=== PATIENT | female | born 1945 | race Caucasian/White ===

== ENCOUNTER 2020-02-21 18:58 | Emergency (ER) | payer OTHER, SELFPAY ==
[2020-02-21 19:17] VITALS: BP 150/109; PULSE 92; RESP 16; TEMP 37.1; O2SAT 95
--- NOTE | 2020-02-21 19:37 | ED.GENADULT ---
HPI - General Adult General Chief complaint: Fall Stated complaint: knee/ribs/foot injury Time Seen by Provider: 02/21/20 19:19 Source: patient and RN notes reviewed Mode of arrival: ambulatory Limitations: no limitations History of Present Illness HPI narrative: Patient presents today complaining of pain to her right knee and left ribs after she fell 10 days ago at [facility]. States she tripped on a barrier in line. She did strike her face on the ground and has some healing bruising to the left cheek. She is primarily complaining of some pain to the right lateral knee. She reports the bruising is improving. States that she had some severe left rib pain initially, but this has been improving as well. A few days after the fall, she noticed some bruising to the bottom of her foot and toes as well as some increased edema to her foot and ankle. Denies pain to the lower leg. Denies pain to the ankle or foot. Denies numbness or tingling in all 4 extremities. She has been ambulating as normal. She currently rates her pain 5/10 and has been taking ibuprofen with mild relief. MD complaint: Right knee pain, left rib pain Related Data Home Medications Medication Instructions Recorded Confirmed alprazolam 0.5 mg tablet 0.5 mg PO BID 09/04/19 meloxicam 7.5 mg tablet 7.5 mg PO DAILY 09/04/19 Allergies Allergy/AdvReac Type Severity Reaction Status Date / Time No Known Allergies Allergy Unverified 10/09/19 14:39 Review of Systems Review of Systems: Narrative: CONSTITUTIONAL: Denies body aches, fever, chills, or sweats. EYES: Denies visual changes, redness, or discharge. ENT: Denies rhinorrhea, congestion, sore throat, or otalgia. CARDIOVASCULAR: Denies chest pain, palpitations, or edema. RESPIRATORY: Denies cough or dyspnea. Left rib pain GASTROINTESTINAL: Denies abdominal pain, nausea, vomiting, or diarrhea. GENITOURINARY: Denies dysuria or hematuria. SKIN: Denies rash, itching, or wounds. MUSCULOSKELETAL: Denies back pain, or myalgia.+ Right knee pain, right ankle swelling NEUROLOGIC: Denies headache, numbness, tingling, or weakness. PSYCH: Denies depression or anxiety. [facility] Family History Family History (Updated 06/14/14 @ 07:13 by DOCTOR UNKNOWN) Father Hypertension Family history of malignant neoplasm of gastrointestinal tract Mother Hypertension Sibling Hypertension Social History Social History (Updated 10/09/19 @ 14:40 by Yeimi Mina) Smoking packs per day: 1 Smoking cigarettes per day: 20.0 Years smoked: 52 Smoking pack-years: 52.00 Smoking status: Heavy tobacco smoker Tobacco type: cigarettes Second hand tobacco smoke exposure: Yes Alcohol intake: never Substance use: never Substance use type: does not use Gender identity (if verbalized by the patient): Female Comments At time of signature, I have reviewed and agree with nursing past medical, surgical, social and family history unless otherwise noted. Please see nursing chart for further information. There is no relevant family history pertinent to the presenting complaint Exam Narrative: Exam Narrative: GENERAL: Well-appearing, well-nourished, and in no acute distress. HEAD: Normocephalic. EYES: EOMI. PERRL. No redness or drainage. Conjunctivae normal. Healing ecchymosis and mild edema underneath the left eye. Orbit is nontender. ENT: Mucous membranes pink and moist. NECK: Normal AROM. Supple. No lymphadenopathy. CHEST: No respiratory distress. Clear to auscultation. Point tenderness to the left mid anterior rib line. No deformity or crepitus noted. No ecchymosis or edema noted. No pain with movement or deep breath. HEART: Regular rate and rhythm. No murmur appreciated. Normal peripheral pulses. ABDOMEN: Soft, nontender, nondistended, normal active bowel sounds. MUSCULOSKELETAL: Scattered healing ecchymosis about the right knee. Very mild tenderness to the lateral knee joint line. Patient has full ra
== END 2020-02-21 19:49 | disposition home or self-care (01) ==
PROVIDERS: Emergency Provider Nurse Practitioner; PCP Family Medicine
DX: L03.115 Cellulitis of right lower limb (principal); S80.01XA Contusion of right knee, initial encounter; S20.212A Contusion of left front wall of thorax, initial encounter; F17.210 Nicotine dependence, cigarettes, uncomplicated; W01.0XXA Fall on same level from slipping, tripping and stumbling without subsequent striking against object, initial encounter
CPT/HCPCS: 99213; G0463

== ENCOUNTER 2020-03-27 20:19 | Emergency (ER) | payer OTHER, SELFPAY ==
--- NOTE | ~2020-03-27 | XR_ITS ---
EXAMINATION: XR tibia fibula RT 2V DATE: 03/27/2020 20:41 INDICATION: Right mid to distal lower leg pain and swelling. Cellulitis. TECHNIQUE: 2 views of right tibia and fibula on 3 radiographs were obtained. COMPARISON: None. FINDINGS: Bone alignment is normal. No fracture. Joint spaces are normal. There is an enthesophyte at inferior pole of patella. There is ankle soft tissue swelling. IMPRESSION: 1. No evidence of osteomyelitis. Reviewed, dictated and finalized at location A.
[2020-03-27 20:26] VITALS: BP 164/101; PULSE 88; RESP 16; TEMP 37.2; O2SAT 96
[2020-03-27 20:39] LABS: Basophils Absolute Auto 0.1 K/mm3 (0.0-0.1); Eosinophils Absolute Auto 0.2 K/mm3 (0-0.3); Eosinophils Percent Auto 2.6 % (0-4.4); Hematocrit 52.2 % (37.0-47.0); Hemoglobin 17.2 g/dL (12.0-15.0); Immature Granulocyte Absolute 0.02 K/mm3 (0.00-0.031); Immature Granulocyte Percent A 0.2 % (0-0.5); Lymphocytes Absolute Auto 2.27 K/mm3 (0.9-3.2); Lymphocytes Percent Auto 25.7 % (18.3-44.2); Mean Platelet Volume 10.3 fl (7.4-10.4); Monocytes Absolute Auto 0.6 K/mm3 (0.1-0.6); Monocytes Percent Auto 6.8 % (2.6-8.5); Neutrophils Absolute Auto 5.6 K/mm3 (1.3-6.7); Neutrophils Percent Auto 63.7 % (45.5-73.1); Platelet Count Result 229 k/mm3 (150-375); Red Blood Count 5.38 M/mm3 (4.2-5.4); Red Cell Distribution Width 13.1 % (11.5-14.5); White Blood Count 8.8 K/mm3 (4.5-10.0)
[2020-03-27 20:52] LABS: Blood Urea Nitrogen 18 mg/dL (7-17); Calcium 9.9 mg/dL (8.4-10.2); Carbon Dioxide 28 mmol/L (22-30); Chloride 107 mmol/L (98-107); Estimated Glomerular Filt Rate > 60; Glucose 97 mg/dL (65-105); Potassium 3.5 mmol/L (3.4-5.0); Sodium 139 mmol/L (137-145)
[2020-03-27 21:01] LABS: Erythrocyte Sedimentation Rate 4 mm/hr (0-20)
[2020-03-27 21:05] LABS: CRP 1.4 mg/dL (<1.0)
[2020-03-27 21:36] VITALS: BP 140/96; PULSE 82; RESP 16; O2SAT 96
--- NOTE | 2020-03-27 21:40 | ED.GENADULT ---
HPI - General Adult General Chief complaint: Skin/Abscess/Foreign Body <Markus Bullock PA-C - Last Filed: 03/27/20 21:45> Stated complaint: r leg infection? <Markus Bullock PA-C - Last Filed: 03/27/20 21:45> Time Seen by Provider: 03/27/20 21:32 <DANDRE Corona Last Filed: 03/27/20 21:45> Source: patient <DANDRE Corona Last Filed: 03/27/20 21:45> Mode of arrival: ambulatory <DANDRE Corona Last Filed: 03/27/20 21:45> Limitations: no limitations <DANDRE Corona Last Filed: 03/27/20 21:45> History of Present Illness HPI narrative: Patient is a 75-year-old female who presents to emergency department for evaluation of redness and swelling of the right lower extremity that began over the last 3 days patient notes in the last month she had had a similar occurrence that resolved with antibiotics was seen at an urgent care patient notes that the redness has recurred also noting some swelling and tightness of the leg at the level of the calf patient notes minimal pain denies any fever chills nausea vomiting chest pain shortness of breath lightheadedness or dizziness patient with history of tobacco abuse and hypertension. <Markus Bullock PA-C Last Filed: 03/27/20 21:45> Related Data Home medications: Home Medications Medication Instructions Recorded Confirmed alprazolam 0.5 mg tablet 0.5 mg PO BID 09/04/19 meloxicam 7.5 mg tablet 7.5 mg PO DAILY 09/04/19 <Markus Bullock PA-C - Last Filed: 03/27/20 21:45> Allergies/adverse reactions: Allergies Allergy/AdvReac Type Severity Reaction Status Date / Time No Known Allergies Allergy Unverified 10/09/19 14:39 <DANDRE Corona Last Filed: 03/27/20 21:45> Review of Systems Review of Systems: All systems reviewed & are unremarkable except as noted in HPI and below <DANDRE Corona Last Filed: 03/27/20 21:45> PMFSH Past Medical History Medical History: Medical History Chronic GERD Essential (primary) hypertension Major depressive disorder, recurrent episode, mild Smoking <Markus Bullock PA-C - Last Filed: 03/27/20 21:45> Family History Family History: Family History (Updated 06/14/14 @ 07:13 by DOCTOR UNKNOWN) Father Hypertension Family history of malignant neoplasm of gastrointestinal tract Mother Hypertension Sibling Hypertension <Markus Bullock PA-C - Last Filed: 03/27/20 21:45> Social History Social History: Social History Smoking packs per day: 1 Smoking cigarettes per day: 20.0 Years smoked: 52 Smoking pack-years: 52.00 Smoking status: Heavy tobacco smoker Tobacco type: cigarettes Second hand tobacco smoke exposure: Yes Alcohol intake: never Substance use: never Substance use type: does not use Gender identity (if verbalized by the patient): Female <Markus Bullock PA-C - Last Filed: 03/27/20 21:45> Exam Narrative: Exam Narrative: GENERAL: Well-appearing, well-nourished, and in no acute distress. HEAD: Normocephalic, atraumatic. EYES: PERRLA and EOMI. ENT: Nares clear, no rhinorrhea or epistaxis. Mucous membranes moist. CHEST: Clear to auscultation. No respiratory distress. No wheezes rales or rhonchi HEART: Regular rate and rhythm. No murmur heard. Normal peripheral pulses. EXTREMITIES: Normal range of motion. No edema. SKIN: Warm, dry, no rash. Patient with erythema of the foot up to the level of the mid hidalgo that is splotchy and circumferential in the lower segments of the hidalgo with tightness and tenderness of the calf no involvement of the knee or above the knee NEURO: No focal deficits. Alert and oriented x3. Neurovascularly intact. Capillary refill less than 2 seconds PSYCH: Normal mood and affect. <Markus Bullock PA-C - Last Filed: 03/27/20 21:45> Course Course Emergency Course: Patient in
[2020-03-27 21:55] LABS: Alanine Aminotransferase 15 U/L (4-35); Albumin Level 4.4 g/dL (3.5-5.1); Alkaline Phosphatase 103 U/L (38-126); Aspartate Amino Transferase 24 U/L (14-36); Bilirubin,Total 0.5 mg/dL (0.2-1.3)
[2020-03-27] MEDS: ENOXAPARIN 100 MG/ML SYRINGE 85 MG SUB-Q (22:05)
[2020-03-27 22:08] LABS: Prothrombin Time 13.1 Seconds (11.1-14.7)
[2020-03-27 22:09] LABS: Partial Thromboplastin Time 29.6 SECONDS (22.3-36.8)
[2020-03-27] MEDS: ceFAZolin SODIUM 1 GM VIAL IM (22:13)
[2020-03-27 22:20] VITALS: BP 153/73; PULSE 81; RESP 18; O2SAT 96
== END 2020-03-27 22:21 | disposition home or self-care (01) ==
LOC: ANHED 21:47
PROVIDERS: Emergency Medicine Emergency Medical Services; Emergency Provider Emergency Medicine; PCP Family Medicine
DX: L03.115 Cellulitis of right lower limb (principal); K21.9 Gastro-esophageal reflux disease without esophagitis; I10 Essential (primary) hypertension; F17.210 Nicotine dependence, cigarettes, uncomplicated; F33.0 Major depressive disorder, recurrent, mild
CPT/HCPCS: 36415; 73590; 80048; 80076; 85025; 85610; 85652; 85730; 86140; 96372; 99284; J0690; J1650

== ENCOUNTER 2020-03-28 07:37 | Outpatient (CLI) | payer OTHER, SELFPAY ==
--- NOTE | ~2020-03-28 | US_ITS ---
EXAMINATION:US venous doppler LE RT INDICATION:Right calf swelling and redness TECHNIQUE: Multiple grayscale, color flow and Doppler images of the right lower extremity deep venous systems were obtained and reviewed. COMPARISON:No prior studies for comparison. FINDINGS: The common femoral, superficial femoral and popliteal veins demonstrate normal respiratory variation, augmentation and compressibility. Color flow is also seen within the posterior tibial, pe roneal, greater saphenous and profunda veins. IMPRESSION: 1: No lower extremity deep venous thrombosis. Reviewed, dictated and finalized at location A.
== END 2020-03-28 07:38 | disposition home or self-care (01) ==
LOC: ANHIMG 07:42
PROVIDERS: PCP Family Medicine; Visit Provider Family Medicine
DX: M79.89 Other specified soft tissue disorders (principal)
CPT/HCPCS: 93971

== ENCOUNTER 2022-09-12 12:38 | Emergency (ER) | payer OTHER, SELFPAY ==
[2022-09-12 12:58] VITALS: BP 146/72; PULSE 86; RESP 20; TEMP 36.8; O2SAT 97
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
== END 2022-09-12 13:57 | disposition short-term general hospital (02) ==
LOC: EXPCOLL 12:49
PROVIDERS: Emergency Provider Nurse Practitioner Family; PCP Family Medicine
DX: S80.12XA Contusion of left lower leg, initial encounter (principal); M79.89 Other specified soft tissue disorders; I10 Essential (primary) hypertension; F17.210 Nicotine dependence, cigarettes, uncomplicated; V49.88XA Car occupant (driver) (passenger) injured in other specified transport accidents, initial encounter; Y92.511 Restaurant or cafe as the place of occurrence of the external cause
CPT/HCPCS: 99212; G0463

== ENCOUNTER 2022-09-13 13:02 | Emergency (ER) | payer OTHER, SELFPAY ==
[2022-09-13 13:08] VITALS: BP 167/85; PULSE 101; RESP 20; TEMP 36.7; O2SAT 96
--- NOTE | 2022-09-13 15:15 | PC.NURSE ---
PT STATES SHE IS LEAVING. WANTS TO GET HOME BEFORE DARK. WILL CALL HER DOCTOR IN THE MORNING FOR A SCRIPT.
== END 2022-09-13 15:29 | disposition left against medical advice (07) ==
LOC: ANHED 15:26
PROVIDERS: PCP Family Medicine
DX: R07.81 Pleurodynia (principal)
CPT/HCPCS: 99199

== ENCOUNTER 2025-04-23 02:04 | Emergency (ER) | payer OTHER, SELFPAY ==
[2025-04-23 02:02] VITALS: BP 115/81; PULSE 80; RESP 23; TEMP 36.7; O2SAT 95
--- NOTE | 2025-04-23 02:12 | ED_ITS ---
HPI - Back Pain/Injury General Chief Complaint: Back Pain/Injury Stated Complaint: lower back pain x 2D/STEMI Time Seen by Provider: 04/23/25 02:16 History of Present Illness HPI Narrative: Patient states for last 2 days she has had severe lower back pain, feels like it is going across both sides, comes up the back and also goes to the front. No focal numbness or weakness, pain does not radiate to her legs or arms. No recent trauma or heavy lifting. No chest pain or difficulty breathing Related Data Allergies Allergy/AdvReac Type Severity Reaction Status Date / Time meloxicam AdvReac Severe Hypertensio Verified 04/23/25 02:12 n Review of Systems 2 Review of Systems: All systems reviewed & are unremarkable except as noted in HPI and below PMFSH Past Medical History Medical History Chronic GERD Essential (primary) hypertension Major depressive disorder, recurrent episode, mild OAB (overactive bladder) Smoking Family History Family History Father Hypertension Family history of malignant neoplasm of gastrointestinal tract Mother Hypertension Sibling Hypertension Social History Social History Smoking packs per day: 1 Smoking cigarettes per day: 20.0 Years smoked: 52 Smoking pack-years: 52.00 Smoking status: Current every day smoker Tobacco type: cigarettes Second hand tobacco smoke exposure: Yes Alcohol intake: never Substance use: never Substance use type: does not use Living arrangements: with family Occupation/Education: retired Gender identity (if verbalized by the patient): Female Exam 2 Narrative: EXAMINATION OF ORGAN SYSTEMS/BODY AREAS: Constitutional: Vital signs per nursing GENERAL: Moaning and groaning with pain HEAD: Normal with no signs of head trauma. EYES: EOMI, conjunctiva normal ENT: Hearing grossly intact LUNGS: Nonlabored breathing. HEART: [Regular rate and rhythm]; equal bilateral radial and DP pulses ABD: [Soft], [nontender to palpation] EXT: Normal range of motion; tenderness to palpation bilateral flank. No midline tenderness. SKIN: [No rashes or lesions.] NEURO: [Alert and oriented x 3. No gross focal sensory or strength deficits.] Moving extremities normally. PSYCH: Normal affect Course Vital Signs Vital signs: Vital Signs Temperature 98.1 F 04/23/25 02:02 Pulse Rate 80 04/23/25 02:02 Respiratory Rate 23 H 04/23/25 02:02 Blood Pressure 115/81 04/23/25 02:02 Pulse Oximetry 95 04/23/25 02:02 Oxygen Delivery Room Air 04/23/25 02:02 Temperature 98.1 F 04/23/25 02:02 Pulse Rate 80 04/23/25 02:02 Respiratory Rate 23 H 04/23/25 02:02 Blood Pressure 115/81 04/23/25 02:02 Pulse Oximetry 4 L 04/23/25 02:25 Oxygen Delivery Nasal Cannula 04/23/25 02:25 Oxygen Flow Rate 4 04/23/25 02:25 Procedures Intubation Intubation #1: Intubation Date: 04/23/25 Intubation Time: 02:50 sedative: none Laryngoscope: fiber optic video scope Assist Device Used: fiber optic device Tube Size (cm): 7.5 Method of Intubation: orotracheal Number of Attempts: 1 Tube Secured Depth (cm): 24 Tube Secured Location: lips Tube Placement Confirmation: visualized tube passing through cords and confirmation by capnometry Patient Tolerated Procedure: no complications MDM - Back Pain/Injury MDM Narrative Medical decision making narrative: 80-year-old female presenting with severe low back pain that goes to the front ongoing for 2-3 days, she has no neurovascular deficits, however given how uncomfortable she appears in the room, I am highly concerned for dissection, CTA dissection immediately ordered. Initial EKG on my independent interpretation at 0207 has a lot of baseline wander, I do not see any obvious ST elevations or depressions. I did call and discuss this case with the copywriting intern at 0210, who also reviewed the EKG, he does not see any signs of ischemia. Patient also does not have any chest pain. Several doses of pain medication ordered but she still can't get comfortable. Labs within acceptable limits including negative troponin. Nurse did go with patient to CT scan; at 0246 patient lost pulses. CPR initiated immediately and I did immediately go to CT, patient intubated and chest compressions continued. Unfortunately despite CPR and several rounds of epi, patient continued to be in PEA. Unfortunately never regained pulses. Patient's son accompanied her here; he requests I call patient's sister and wait until she gets here to update him. He is intellectually disabled. Omayra (sister) is here; they are informed about her . I did also inform his PCP. Lab Data 04/23/25 02:14 04/23/25 02:14 Labs: Lab Results 04/23/25 Range/Units 02:14 WBC 15.2 H (4.5-10.0) K/mm3 RBC 5.25 (4.2-5.4) M/mm3 Hgb 16.2 H (12.0-15.0) g/dL Hct 49.3 H (37.0-47.0) % MCV 93.9 (80-100) fl MCH 30.9 (26-34) pg MCHC 32.9 (32-36) g/dl RDW 12.9 (11.5-14.5) % Plt Count 245 (150-375) k/mm3 MPV 10.2 (7.4-10.4) fl Immature Gran % (Auto) 0.4 (0-0.5) % Neut % (Auto) 82.9 H (45.5-73.1) % Lymph % (Auto) 11.0 L (18.3-44.2) % [place] % (Auto) 4.0 (2.6-8.5) % Eos % (Auto) 1.0 (0-4.4) % Baso % (Auto) 0.7 (0.2-1.2) % Lymph # (Auto) 1.67 (0.9-3.2) K/mm3 [place] # (Auto) 0.6 (0.1-0.6) K/mm3 Eos # (Auto) 0.2 (0-0.3) K/mm3 Baso # (Auto) 0.1 (0.0-0.1) K/mm3 Abs Immat Gran (auto) 0.06 H (0.00-0.031) K/mm3 Absolute Neuts (auto) 12.6 H (1.3-6.7) K/mm3 Absolute Nucleated RBC 0.000 (0.0-0.012) K/mm3 Nucleated RBC % 0.0 (0.0-0.2) % Sodium 138 (137-145) mmol/L Potassium 3.1 L (3.4-5.0) mmol/L Chloride 102 (98-107) mmol/L Carbon Dioxide 25 (22-30) mmol/L Anion Gap 11 (4-12) mmol/L BUN 27 H (7-17) mg/dL Creatinine 1.06 H (0.7-1.0) mg/dL Estim Creat Clear Calc Not Reportable Estimated GFR 50 L (59 - ) Glucose 164 H (65-110) mg/dL Calcium 9.7 (8.4-10.2) mg/dL Total Bilirubin 0.8 (0.2-1.3) mg/dL AST 32 (14-36) U/L ALT 21 (6-35) U/L Alkaline Phosphatase 87 (38-126) U/L Troponin I < 0.012 (0.000-0.034) ng/mL Total Protein 7.8 (6.3-8.2) g/dL Albumin 4.5 (3.5-5.1) g/dL Critical Care Time Critical Care Time Critical Care Time: Yes Total Critical Care Time: 41 Discharge Plan Discharge Clinical Impression: Cardiopulmonary arrest Patient Disposition: Condition: Patient Language: Chadian Prescriptions: No Action oxybutynin chloride 5 mg tablet extended release 24hr 5 mg PO DAILY Qty: 90 1RF buspirone 5 mg tablet 5 mg PO TID PRN (Reason: anxiety) Qty: 270 0RF amlodipine 10 mg tablet 10 mg PO DAILY Qty: 90 1RF levothyroxine [Synthroid] 100 mcg tablet 100 mcg PO DAILY Qty: 90 2RF hydrochlorothiazide 25 mg tablet See Rx Instructions .ROUTE .COMPLEX Qty: 90 0RF Dose Instruction: TAKE 1 TABLET BY MOUTH EVERY DAY Rx Instructions: TAKE 1 TABLET BY MOUTH EVERY DAY Follow-up/Referrals: Dario Burks MD [Physician] -
[2025-04-23] MEDS: diazePAM INJ (*CRX) 10 MG/2 ML SYRINGE 5 MG IV PUSH (02:15)
--- NOTE | 2025-04-23 02:19 | PC.NURSE ---
VORB to place patient on O2 for borderline RA sat. Patient placed on 4L via NC for RA sat of 90%. O2 increased to 95% on 4L via NC.
[2025-04-23 02:21] LABS: Hematocrit 49.3 % (37.0-47.0); Hemoglobin 16.2 g/dL (12.0-15.0); Immature Granulocyte Percent A 0.4 % (0-0.5); Lymphocytes Absolute Auto 1.67 K/mm3 (0.9-3.2); Mean Corpuscular HGB Conc 32.9 g/dl (32-36); Mean Corpuscular Hemoglobin 30.9 pg (26-34); Mean Corpuscular Volume 93.9 fl (80-100); Nucleated Red Blood Cells Absolute Auto 0.000 K/mm3 (0.0-0.012); Nucleated Red Blood Cells Perc 0.0 % (0.0-0.2); Platelet Count Result 245 k/mm3 (150-375); Red Blood Count 5.25 M/mm3 (4.2-5.4); White Blood Count 15.2 K/mm3 (4.5-10.0)
[2025-04-23 02:25] VITALS: O2SAT 4
--- NOTE | 2025-04-23 02:25 | ECG_ITS ---
Test Date: 2025-04-23 02:07:20 Measurements Intervals Dawson Rate: 79 P: 33 WA: 219 QRS: -72 QRSD: 121 T: 66 QT: 427 QTc: 492 Interpretive Statements SINUS RHYTHM WITH FIRST DEGREE AV BLOCK LEFT ANTERIOR FASCICULAR BLOCK [QRS AXIS <= -45, QR IN I, RS IN II] VOLTAGE CRITERIA FOR LVH [MEETS CRITERIA IN ONE OF: R(aVL), S(V1), R(V5), R(V5/V6)+S(V1)] NONSPECIFIC ST changes No previous ECG available for comparison Electronically Signed On 04-23-2025 22:27:42 CDT by Ruben Messina M.D.
[2025-04-23 02:34] LABS: Alanine Aminotransferase 21 U/L (6-35); Albumin Level 4.5 g/dL (3.5-5.1); Alkaline Phosphatase 87 U/L (38-126); Anion Gap 11 mmol/L (4-12); Aspartate Amino Transferase 32 U/L (14-36); Bilirubin,Total 0.8 mg/dL (0.2-1.3); Blood Urea Nitrogen 27 mg/dL (7-17); Calcium 9.7 mg/dL (8.4-10.2); Carbon Dioxide 25 mmol/L (22-30); Chloride 102 mmol/L (98-107); Estimated Glomerular Filt Rate 50; Glucose 164 mg/dL (65-110); Potassium 3.1 mmol/L (3.4-5.0); Sodium 138 mmol/L (137-145); Total Protein 7.8 g/dL (6.3-8.2)
[2025-04-23] MEDS: LACTATED RINGERS 1,000 ML 999 ML IV CONT (02:38)
[2025-04-23] MEDS: fentaNYL CITRATE INJ (*CRX) 100 MCG/2 ML VIAL 50 MCG IV PUSH (02:39)
[2025-04-23 03:12] LABS: Troponin I < 0.012 ng/mL (0.000-0.034)
--- NOTE | 2025-04-23 03:23 | PC.NURSE ---
Temo Serrano @ [employer] [facility] Ok to release Call back with Home when known
--- NOTE | 2025-04-23 03:30 | PC.NURSE ---
Rg @ [facility] notified and will return a call back to let us know if the patient is a candidate.
--- NOTE | 2025-04-23 03:42 | PC.NURSE ---
0242 This RN and technical operations manager in room to connect patient to transport monitor and O2 on stretcher. Patient was then taken to CT via stretcher by this RN and technical operations manager while on transport tele monitor, monitored by this RN. Patient awake and sitting up on stretcher. Patient rolled into CT dept by technical operations manager and this RN. Patient continues to be restless and fidgeting. Patient was instructed by this RN she will have to remain still for the scan. Patient then sat straight up, looked at this RN who was at bedside and then went unresponsive at 0246. Patient was assisted to lay back on the stretcher, this RN performed sternal rub, no response, monitor showed extreme edwardo and no pulse was felt by this RN. CPR was immediately by this RN, and help was called. This RN called Raudel watson on vocera to ED, who then called overhead. Help arrived with ERP and RT at 0248. Patient was rolled back to room 14 in the ED while CPR was in progress. Patient was back in the room at 0250. 0251 epi was given. 0254 pulse check, PEA, CPR resumed and epi was given. 0256 ERP placed 7.5 ETT that was seen passing the cords, visible chest rise and fall, color change on the co2 detector. Tube secured at 24 at the lip. 0257 Epi given. 0258 ERP performs bedside ultrasound, pulse check PEA. 0300 ERP calls TOD.
--- NOTE | 2025-04-23 04:12 | PC.NURSE ---
Saad @ [facility] notified. ETA 45 minutes - please go ahead and take pt to the morgue.
--- NOTE | 2025-04-23 04:55 | PC.NURSE ---
Patient taken to [facility] at 0445.
== END 2025-04-23 04:45 | disposition expired ==
PROVIDERS: Emergency Provider Emergency Medicine
DX: I46.9 Cardiac arrest, cause unspecified (principal); K21.9 Gastro-esophageal reflux disease without esophagitis; I10 Essential (primary) hypertension; N32.81 Overactive bladder; F33.9 Major depressive disorder, recurrent, unspecified; F17.210 Nicotine dependence, cigarettes, uncomplicated; Z79.899 Other long term (current) drug therapy; I44.0 Atrioventricular block, first degree; I44.4 Left anterior fascicular block
CPT/HCPCS: 31500; 36415; 80053; 84484; 85025; 92950; 93005; 96374; 96375; 99291; J0171; J3010; J3360; J7120